=== PATIENT | male | born 1980 | race Caucasian/White ===

== ENCOUNTER 2024-08-03 09:28 | Emergency (ER) | payer OTHER, SELFPAY | END 2024-08-03 11:36 | disposition home or self-care (01) | LOC: ERS 09:28 | DX: S30.22XA Contusion of scrotum and testes, initial encounter (principal); F17.210 Nicotine dependence, cigarettes, uncomplicated; X58.XXXA Exposure to other specified factors, initial encounter | CPT/HCPCS: 76870; 93976 ==